=== PATIENT | female | born 1935 | race Caucasian/White ===

== ENCOUNTER 2016-03-16 13:11 | Emergency (ER) | payer MEDICARE ==
[~2016-03-16] VITALS: Ht 160 cm; Wt 72.6 kg
[~2016-03-16 13:11] MED LIST: COZA50TA PO; DEMA10TA PO; FISH300C2 PO; GLUC500C56 PO; KONS520C PO; LUTE6CAP7; METR250; OYST500T77 PO; PRIL20TA2 PO; TAB-TAB PO; WARF2.5 PO
[2016-03-16 13:19] VITALS: BP 142/69; PULSE 64; RESP 16; TEMP 97.8; O2SAT 100
[2016-03-16] MEDS ORDERED: LOSA50TA PO (13:53)
[2016-03-16] MEDS ORDERED: ASPI1TAB69 PO (13:53)
[2016-03-16] MEDS ORDERED: TORS10TA2 PO (13:53)
[2016-03-16] MEDS ORDERED: NEXI20CA PO (13:53)
[2016-03-16] MEDS ORDERED: DIAZ2TAB PO (13:53)
[2016-03-16 14:51] VITALS: O2SAT 97
--- NOTE | 2016-03-16 14:53 | PD ---
HPI Chief Complaint: GI Complaint Time Seen by Provider: 14:36 Travel History International Travel<30 days: No Contact w/Intl Traveler<30days: No Traveled to known affect area: No History of Present Illness HPI 80-year-old female complains of black tarry stool. Patient states that symptoms started last night. Patient states the symptoms better this morning. Patient denies any history GI bleed in the past. Patient take aspirin 81 mg daily. Patient denies abdominal pain. Patient denies any headache. Patient denies any chest pain or shortness of breath. Patient denies any nausea vomiting diarrhea. Patient denies any fever chills. Patient denies any back pain. Patient was seen by GI specialist Dr. Yo in the past. Patient's on Nexium daily. PFSH Past Medical History Arthritis: Yes Blood Disorders: No Cancer: Yes (SKIN CA-REMOVED) Cardiovascular Problems: Yes Diminished Hearing: No Endocrine: No Gastrointestinal Disorders: Yes (IBS) GERD: Yes Genitourinary: No Hypertension: Yes Immune Disorder: No Musculoskeletal: Yes Neurologic: No Psychiatric: No Reproductive: No Respiratory: No Sickle Cell Disease: No ?: Not LMP: STEPH Past Surgical History Abdominal Surgery: Yes (CHOLECYSTECTEMY) Cholecystectomy: Yes Gynecologic Surgery: Yes (VAG HYSTERECTOMY) Hysterectomy: Yes Oral Surgery: Yes (TONSILECTEMY) Tonsillectomy: Yes Social History Alcohol Use: No Tobacco Use: No Substance Use: No Allergies-Medications (Allergen,Severity, Reaction): Coded Allergies: No Known Allergies (Verified , 03/16/16) Reported Meds & Prescriptions Reported Meds & Active Scripts Active Reported Losartan (Losartan Potassium) 50 Mg Tab 50 Mg PO DAILY Diazepam 2 Mg Tab 2 Mg PO QD PRN Torsemide 10 Mg Tab 10 Mg PO DAILY Nexium (Esomeprazole DR) 20 Mg Capdr 20 Mg PO DAILY Aspirin 81 Mg Tabdr 81 Mg PO DAILY Review of Systems General / Constitutional: No: Fever Eyes: No: Visual changes HENT: No: Headaches Cardiovascular: No: Chest Pain or Discomfort Respiratory: No: Shortness of Breath Gastrointestinal: Positive: Hematochezia, No: Abdominal Pain Genitourinary: No: Dysuria Musculoskeletal: No: Pain Skin: No Rash Neurologic: No: Weakness Psychiatric: No: Depression Endocrine: No: Polydipsia Hematologic/Lymphatic: No: Easy Bruising Physical Exam Narrative GENERAL: Well-nourished, well-developed patient. SKIN: Warm and dry. HEAD: Normocephalic. EYES: No scleral icterus. No injection or drainage. NECK: Supple, trachea midline. No JVD or lymphadenopathy. CARDIOVASCULAR: Regular rate and rhythm without murmurs, gallops, or rubs. RESPIRATORY: Breath sounds equal bilaterally. No accessory muscle use. GASTROINTESTINAL: Abdomen soft, non-tender, nondistended. Rectal exam Hemoccult negative. Patient however brought in the stool sample and Hemoccult- positive. MUSCULOSKELETAL: No cyanosis, or edema. BACK: Nontender without obvious deformity. No CVA tenderness. Neurologic exam normal. Data Data Last Documented VS Vital Signs Date Time Temp Pulse Resp B/P Pulse Ox O2 Delivery O2 Flow Rate FiO2 03/16/16 14:58 61 20 136/74 100 03/16/16 13:19 97.8 Orders Complete Blood Count With Diff (03/16/16 14:46) Comprehensive Metabolic Panel (03/16/16 14:46) Prothrombin Time / Inr (Pt) (03/16/16 14:46) Act Partial Throm Time (Ptt) (03/16/16 14:46) Iv Access Insert/Monitor (03/16/16 14:46) Ecg Monitoring (03/16/16 14:46) Oximetry (03/16/16 14:46) Pantoprazole Inj (Protonix Inj) (03/16/16 15:00) Labs Laboratory Tests Test 03/16/16 14:55 White Blood Count 6.9 TH/MM3 Red Blood Count 3.99 MIL/MM3 Hemoglobin 12.0 GM/DL Hematocrit 36.7 % Mean Corpuscular Volume 91.9 FL Mean Corpuscular Hemoglobin 30.1 PG Mean Corpuscular Hemoglobin 32.8 % Concent Red Cell Distribution Width 13.5 % Platelet Count 219 TH/MM3 Mean Platelet Volume 9.3 FL Neutrophils (%) (Auto) 56.5 % Lymphocytes (%) (Auto) 29.9 % Monocytes (%) (Auto) 10.0 % Eosinophils (%) (Auto) 3.1 % Basophils (%) (Auto) 0.5 % Neutrophils # (Auto) 3.9 TH/MM3 Lymphocytes # (Auto) 2.1 TH/MM3 Monocytes # (Auto) 0.7 TH/MM3 Eosinophils # (Auto) 0.2 TH/MM3 Basophils # (Auto) 0.0 TH/MM3 CBC Comment DIFF FINAL Differential Comment Prothrombin Time 10.4 SEC Prothromb Time International 0.9 RATIO Ratio Activated Partial 26.3 SEC Thromboplast Time Sodium Level 145 MEQ/L Potassium Level 4.5 MEQ/L Chloride Level 111 MEQ/L Carbon Dioxide Level 27.9 MEQ/L Anion Gap 6 MEQ/L Blood Urea Nitrogen 16 MG/DL Creatinine 1.10 MG/DL Estimat Glomerular Filtration 48 ML/MIN Rate Random Glucose 84 MG/DL Calcium Level 8.4 MG/DL Total Bilirubin 0.4 MG/DL Aspartate Amino Transf 14 U/L (AST/SGOT) Alanine Aminotransferase 13 U/L (ALT/SGPT) Alkaline Phosphatase 69 U/L Total Protein 6.5 GM/DL Albumin 3.1 GM/DL [facility] Medical Decision Making Medical Screen Exam Complete: Yes Emergency Medical Condition: Yes Interpretation(s) 1535 PM. CBC with hemoglobin 12.0 hematocrit 36.7. Creatinine 1.1. Differential Diagnosis Differential diagnosis including upper versus lower GI bleed, gastritis, colitis , AV malformation, hemorrhoidal bleed, bowel lesion Narrative Course 80-year-old female with Hemoccult-positive stool since last night. Protonix 40 mg IV. Diagnosis Primary Impression: GI bleed Qualified Code: K92.2 - Gastrointestinal hemorrhage, unspecified gastrointestinal hemorrhage type Patient Instructions: General Instructions Additional Instructions: Continue with Nexium as directed.. Follow up with GI specialist. Return if persistent bleeding per rectum, abdominal pain, fever. Med/Other Pt SpecificInfo: Prescription(s) given Disposition: 01 DISCHARGE HOME Condition: Stable Mohinder Alexander MD Mar 16, 2016 14:53
[2016-03-16 14:58] VITALS: BP 136/74; PULSE 61; RESP 20; O2SAT 100
[2016-03-16] MEDS ORDERED: PANTOPRAZOLE SODIUM 40 MG VIAL IV PUSH ONE (15:00)
[2016-03-16 15:08] LABS: AUTOMATED NEUTROPHIL # 3.9 TH/MM3 (1.8-7.7); BASOPHIL % 0.5 % (0.0-2.0); EOSINOPHIL # 0.2 TH/MM3 (0-0.4); EOSINOPHIL % 3.1 % (0.0-4.0); HEMATOCRIT 36.7 % (35.0-46.0); HEMO FLAGS DIFF FINAL; LYMPH % 29.9 % (9.0-44.0); LYMPHOCYTE # 2.1 TH/MM3 (1.0-4.8); MEAN CELL VOLUME 91.9 FL (80.0-100.0); MEAN CORPUSCULAR HEMOGLOBIN 30.1 PG (27.0-34.0); MEAN CORPUSCULAR HGB CONC 32.8 % (32.0-36.0); NEUT % 56.5 % (16.0-70.0); PLATELET COUNT 219 TH/MM3 (150-450); RED BLOOD COUNT 3.99 MIL/MM3 (4.00-5.30); RED CELL DISTRIBUTION WIDTH 13.5 % (11.6-17.2); WHITE BLOOD COUNT 6.9 TH/MM3 (4.0-11.0)
[2016-03-16 15:13] LABS: CHLORIDE 111 MEQ/L (98-107); POTASSIUM 4.5 MEQ/L (3.5-5.1); SODIUM (NA) 145 MEQ/L (136-145)
[2016-03-16 15:17] LABS: ANION GAP 6 MEQ/L (5-15); APTT (PATIENT) 26.3 SEC (24.3-30.1); BICARBONATE 27.9 MEQ/L (21.0-32.0); BLOOD UREA NITROGEN 16 MG/DL (7-18); INTERNATIONAL NORMALIZED RATIO 0.9 RATIO; PROTHROMBIN TIME - PATIENT 10.4 SEC (9.8-11.6)
[2016-03-16 15:20] LABS: ALT (GPT) 13 U/L (10-53); AST (GOT) 14 U/L (15-37); GLOMERULAR FILTRATION RATE 48 ML/MIN (>89)
[2016-03-16 15:22] LABS: TOTAL BILIRUBIN ADULT 0.4 MG/DL (0.2-1.0)
[2016-03-16 15:23] LABS: ALKALINE PHOSPHATASE 69 U/L (45-117)
[2016-03-16 16:06] VITALS: BP 139/69
== END 2016-03-16 16:17 | disposition home or self-care (01) ==
LOC: PHED 13:11
DX: K92.2 Gastrointestinal hemorrhage, unspecified (principal); I10 Essential (primary) hypertension; K58.9 Irritable bowel syndrome, unspecified
CPT/HCPCS: 80053; 85025; 85610; 85730; 96374; 99284; C9113

== ENCOUNTER 2016-05-15 15:19 | Emergency (ER) | payer MEDICARE ==
[~2016-05-15] VITALS: Ht 157.5 cm; Wt 73.0 kg
[~2016-05-15 15:19] MED LIST changes: +ASPI1TAB69 PO; -COZA50TA PO; -DEMA10TA PO; +DIAZ2TAB PO; -FISH300C2 PO; -GLUC500C56 PO; -KONS520C PO; +LOSA50TA PO; -LUTE6CAP7; -METR250; +NEXI20CA PO; -OYST500T77 PO; -PRIL20TA2 PO; -TAB-TAB PO; +TORS10TA2 PO; -WARF2.5 PO
[2016-05-15 15:35] VITALS: BP 114/61; PULSE 69; RESP 16; TEMP 98.1; O2SAT 99
--- NOTE | 2016-05-15 16:27 | PD ---
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 States pain is mainly in medial thigh and into calf and worst when I press on it. Denies any fever, trauma, chest pain, sob, n/v, abdominal pain, focal weakness or numbness. PFSH Past Medical History Hx Anticoagulant Therapy: No Arthritis: Yes Blood Disorders: No Cancer: Yes (SKIN CA-REMOVED) Cardiovascular Problems: Yes Diminished Hearing: No Endocrine: No Gastrointestinal Disorders: Yes (IBS) GERD: Yes Genitourinary: No Hypertension: Yes Immune Disorder: No Musculoskeletal: Yes Neurologic: No Psychiatric: No Reproductive: No Respiratory: No Sickle Cell Disease: No Influenza Vaccination: Yes Past Surgical History Abdominal Surgery: Yes (CHOLECYSTECTEMY) Cholecystectomy: Yes Gynecologic Surgery: Yes (VAG HYSTERECTOMY) Hysterectomy: Yes Oral Surgery: Yes (TONSILECTEMY) Tonsillectomy: Yes Social History Alcohol Use: No Tobacco Use: No Substance Use: No Allergies-Medications (Allergen,Severity, Reaction): Coded Allergies: No Known Allergies (Verified , 05/15/16) Reported Meds & Prescriptions Reported Meds & Active Scripts Active Acetaminophen 325 Mg Tab 325 Mg PO Q4-6H PRN Reported Losartan (Losartan Potassium) 50 Mg Tab 50 Mg PO DAILY Diazepam 2 Mg Tab 2 Mg PO QD PRN Torsemide 10 Mg Tab 10 Mg PO DAILY Nexium (Esomeprazole DR) 20 Mg Capdr 20 Mg PO DAILY Review of Systems Except as stated in HPI: all other systems reviewed are Neg Physical Exam Narrative GENERAL: 80yo F not in distress. SKIN: Warm and dry. HEAD: Atraumatic. Normocephalic. CARDIOVASCULAR: Regular rate and rhythm. No murmur appreciated. RESPIRATORY: No accessory muscle use. Clear to auscultation. Breath sounds equal bilaterally. GASTROINTESTINAL: Abdomen soft, non-tender, nondistended. No rebound tenderness or guarding. MUSCULOSKELETAL: RLE: +Mild streaky erythema right medial thigh. +Mild ttp proximal calf. DP 2+. Sensation intact. NEUROLOGICAL: Awake and alert. No obvious cranial nerve deficits. Motor grossly within normal limits. Normal speech. PSYCHIATRIC: Appropriate mood and affect; insight and judgment normal. Data Data Last Documented VS Vital Signs Date Time Temp Pulse Resp B/P Pulse Ox O2 Delivery O2 Flow Rate FiO2 05/15/16 18:36 72 18 120/62 99 05/15/16 15:35 98.1 Orders Us Leg Venous Doppler (05/15/16 ) Acetaminophen (Tylenol) (05/15/16 16:30) MDM Medical Decision Making Medical Screen Exam Complete: Yes Emergency Medical Condition: Yes Differential Diagnosis DVT vs. musculoskeletal pain vs. landry cyst vs. cellulitis Narrative Course 80yo F with PMH of DVT here with right leg pain for 4-5 days. Right leg is mildly ttp and has very mild erythema but not hot to touch and no fever or signs of infection or swelling. There is really no pain if we dont press on the area. Pt given acetaminophen which relieved the pain. US right leg showed no DVT but there is extensive clot in the greater saphenous vein. Explained to patient that no anticoagulation needed for superficial vein thrombosis. Symptomatic treatment. Pt to follow up with PMD. Return precautions given. Diagnosis Primary Impression: Superficial vein thrombosis Patient Instructions: General Instructions Departure Forms: Tests/Procedures Additional Instructions: Please follow up with your PMD in 3-7 days. US of right lower extremity showed no deep vein thrombosis. However, there is extensive clot in the greater saphenous vein. Return to the ED if symptoms worsen. Med/Other Pt SpecificInfo: Prescription(s) given Scripts Acetaminophen 325 Mg [id number] Mg PO Q4-6H PRN (PAIN SCALE 1 TO 4) #20 TAB Ref 0 Prov:WelchNatalie lorenzana 05/15/16 Disposition: 01 DISCHARGE HOME Condition: Stable WelchVirginia lorenzanamariel BOURNE May 15, 2016 16:27
[2016-05-15] MEDS ORDERED: ACETAMINOPHEN 500 MG CPLT PO ONE (16:30)
--- NOTE | 2016-05-15 17:56 | RADHPO ---
EXAM DATE/TIME: 05/15/2016 17:27 [facility] COMPARISON: No previous studies available for comparison. INDICATIONS : Pain in right lower extremity. MEDICAL HISTORY : Deep venous thrombosis. Irritable bowel syndrome. Arthritis. Skin cancer. GERD. Hypertension. SURGICAL HISTORY : Tonsillectomy. Hysterectomy. Cholecystectomy. Right ankle surgery. ENCOUNTER: Initial ACUITY: 4 - 6 days PAIN SCORE: 6/10 LOCATION: Right leg. TECHNIQUE: Venous ultrasound of the leg was performed from the inguinal ligament to the proximal calf. Real-carlos e, color Doppler and spectral tracing, compression and augmentation techniques were used. FINDINGS: There is normal compressibility of the deep venous system from the inguinal region to the proximal ca lf. No echogenic clot is seen in the lumen of the common femoral, femoral, popliteal, and posterior tibial veins. There is a normal response of the venous system to proximal and distal augmentation an d respiration. Right-sided segmental thrombus seen in the right greater saphenous vein. CONCLUSION: No DVT of the right lower extremity but there is extensive clot in the greater saphenous vein. Constantin Benítez MD on May 15, 2016 at 17:54 Board Certified Radiologist. This report was verified electronically.
[2016-05-15] MEDS ORDERED: ACET325T PO (18:23)
[2016-05-15 18:36] VITALS: BP 120/62
== END 2016-05-15 18:36 | disposition home or self-care (01) ==
LOC: PHED 15:19
DX: I82.90 Acute embolism and thrombosis of unspecified vein (principal); I10 Essential (primary) hypertension; K21.9 Gastro-esophageal reflux disease without esophagitis; M19.90 Unspecified osteoarthritis, unspecified site
CPT/HCPCS: 93971